=== PATIENT | male | born 1995 | race Caucasian/White ===

== ENCOUNTER 2019-01-09 19:40 | Emergency (ER) | payer BC, SELFPAY ==
[2019-01-09] MEDS ORDERED: Cyclobenzaprine 10 MG TAB ONE (20:13)
[2019-01-09] MEDS ORDERED: Ibuprofen 800 MG TAB ONE (20:13)
[2019-01-09] MEDS ORDERED: Adacel (T-DAP) 0.5 ML SYRINGE ONE (20:13)
== END 2019-01-09 20:32 | disposition home or self-care (01) ==
LOC: MADERS 19:40
DX: S16.1XXA Strain of muscle, fascia and tendon at neck level, initial encounter (principal); S39.012A Strain of muscle, fascia and tendon of lower back, initial encounter; S50.812A Abrasion of left forearm, initial encounter; V49.9XXA Car occupant (driver) (passenger) injured in unspecified traffic accident, initial encounter
CPT/HCPCS: 90471; 90715

== ENCOUNTER 2019-10-16 14:20 | Emergency (ER) | payer OTHER, SELFPAY ==
[~2019-10-16 14:20] MED LIST: Sodium Chloride Irrig Solution 250 ML BOT ONE
--- NOTE | 2019-10-16 15:02 | RAD ---
Exam: XR Finger(s) Rt Min 2 View HISTORY: Injury to right middle finger COMPARISON: None FINDINGS: There is a transverse fracture involving the proximal aspect distal phalanx of the right middle finge r. The distal fracture fragment is displaced dorsally by approximately three quarters shaft width with apex dorsal angulation of fracture fragments. This fracture is just beneath the base of the nail bed suggesting an open fracture. There is mild separation of fracture fragments. No additional fracture or dislocation is appreciated. IMPRESSION: Mildly and angulated as well as displaced fracture involving the distal phalanx right middl e finger. Fracture is just beneath the base of the nailbed and is worrisome for an open fracture.
[2019-10-16] MEDS ORDERED: Lidocaine 1% 20 ML MDV ONE (15:17)
[2019-10-16] MEDS ORDERED: Ibuprofen 800 MG TAB ONE (16:01)
[2019-10-16] MEDS ORDERED: Amoxicillin/Potassium Clav 875 MG TAB ONE (16:01)
== END 2019-10-16 16:07 | disposition home or self-care (01) ==
LOC: MADERS 14:20
DX: S62.632B Displaced fracture of distal phalanx of right middle finger, initial encounter for open fracture (principal); S61.312A Laceration without foreign body of right middle finger with damage to nail, initial encounter; W23.0XXA Caught, crushed, jammed, or pinched between moving objects, initial encounter
CPT/HCPCS: 26755; J2001